=== PATIENT | female | born 1965 | race Caucasian/White ===

== ENCOUNTER 2017-08-20 10:36 | Emergency (ER) | payer OTHER ==
[~2017-08-20] VITALS: Ht 167.6 cm; Wt 104.3 kg
[2017-08-20] MEDS ORDERED: NAPROSYN500 M1 PO (12:14)
[2017-08-20 12:22] VITALS: BP 132/72
== END 2017-08-20 12:23 | disposition home or self-care (01) ==
LOC: M.ERS 10:36
DX: S93.491A Sprain of other ligament of right ankle, initial encounter (principal); Z90.710 Acquired absence of both cervix and uterus; W18.39XA Other fall on same level, initial encounter; Y93.89 Activity, other specified; Y92.89 Other specified places as the place of occurrence of the external cause; Y99.8 Other external cause status